=== PATIENT | female | born 1960 | race African-American/Black ===

== ENCOUNTER 2020-06-29 05:34 | Day surgery (SDC) | payer BC ==
[~2020-06-29] VITALS: Ht 157.5 cm; Wt 64.0 kg
[2020-06-29] MEDS ORDERED: LACTATED RINGERS 1,000 ML IV SCH (06:35)
[2020-06-29] MEDS ORDERED: MIDAZOLAM 1 MG/ML, 2ML ONE (06:54)
[2020-06-29] MEDS ORDERED: FENTANYL PF 100 MCG/2ML ONE (06:55)
[2020-06-29] MEDS ORDERED: CHLORHEXIDINE 15 ML UDC MM ONE (07:00)
[2020-06-29] MEDS ORDERED: NONE PER PT (07:11)
[2020-06-29 07:12] VITALS: BP 114/85
[2020-06-29] MEDS ORDERED: HYDROmorphone 1 MG/ML, 1ML INJ IVPush PRN (07:30)
[2020-06-29] MEDS ORDERED: LABETALOL 5MG/ML, 20ML IV PRN (07:30)
[2020-06-29] MEDS ORDERED: MEPERIDINE/PF 25MG/0.5ML IVPush PRN (07:30)
[2020-06-29] MEDS ORDERED: ONDANSETRON 2MG/ML, 2ML IVPush PRN (07:30)
[2020-06-29] MEDS ORDERED: PROMETHAZINE 25 MG/ML, 1ML IVPush PRN (07:30)
[2020-06-29] MEDS ORDERED: hydrALAzine 20 MG/ML, 1ML IV PRN (07:30)
[2020-06-29] MEDS ORDERED: FENTANYL PF 100 MCG/2ML IV PRN (07:30)
[2020-06-29] MEDS ORDERED: OXYcodone 5 MG/5 ML ORAL.SOL UDC PO PRN (07:30)
[2020-06-29] MEDS ORDERED: PROPOFOL 10 MG/ML, 20ML ONE (07:59)
[2020-06-29] MEDS ORDERED: ONDANSETRON 2MG/ML, 2ML ONE (07:59)
== END 2020-06-29 09:32 | disposition home or self-care (01) ==
LOC: OUT 05:34
PROVIDERS: ATTEND Internal Medicine Geriatric Medicine
DX: K57.20 Diverticulitis of large intestine with perforation and abscess without bleeding (principal); Z11.59 Encounter for screening for other viral diseases; K62.1 Rectal polyp; F12.10 Cannabis abuse, uncomplicated; Z88.8 Allergy status to other drugs, medicaments and biological substances; Z80.0 Family history of malignant neoplasm of digestive organs
CPT/HCPCS: 36415; 45380; 87635; 88305; J2250; J2405; J2704; J3010; J7120